=== PATIENT | female | born 1980 | race Caucasian/White ===

== ENCOUNTER 2017-03-01 18:44 | Emergency (ER) | payer BC, OTHER ==
[~2017-03-01] VITALS: Ht 160 cm; Wt 59.5 kg
[2017-03-01 18:48] VITALS: Ht 160 cm; Wt 59.5 kg
[2017-03-01 19:20] LABS: URINE BLOOD (Dip) POC 2+ (NEGATIVE)
[2017-03-01 19:35] LABS: ADD UMIC YES; UR ASCORBIC ACID NEGATIVE (NEGATIVE); UR BILIRUBIN (Dip) NEGATIVE (NEGATIVE); UR BLOOD (Dip) 1+ mg/dL (NEGATIVE); UR CLARITY CLEAR (CLEAR); UR COLOR YELLOW (YELLOW); UR GLUCOSE (Dip) NEGATIVE (NEGATIVE); UR KETONES (Dip) NEGATIVE (NEGATIVE); UR LEUKOCYTE ESTERASE (Dip) NEGATIVE Leu/ul (NEGATIVE); UR NITRITE (Dip) NEGATIVE (NEGATIVE); UR RBC 1 /HPF (0-5); UR SPECIFIC GRAVITY (Dip) 1.012 (1.003-1.030); UR SQUAMOUS EPITHELIAL CELL FEW /HPF (FEW); UR TOTAL PROTEIN (Dip) NEGATIVE (NEGATIVE); UR UROBILINOGEN (Dip) NEGATIVE (NEGATIVE)
[2017-03-01 19:48] LABS: BASOPHILS % 0.4 % (0.0-2.0); EOSINOPHILS # 0.1 10^3/ul (0.0-0.5); EOSINOPHILS % 0.7 % (0.0-7.0); HEMATOCRIT 37.4 % (37.0-47.0); HEMOGLOBIN 12.2 g/dl (12.0-16.0); LYMPHOCYTES # 3.1 10^3/ul (0.8-2.9); LYMPHOCYTES % 27.7 % (15.0-51.0); MEAN CORPUSCULAR HEMOGLOBIN 28.4 pg (29.0-33.0); MEAN CORPUSCULAR HGB CONC 32.6 g/dl (32.0-37.0); MEAN CORPUSCULAR VOLUME 87.2 fl (82.0-101.0); MEAN PLATELET VOLUME 12.3 fl (7.4-10.4); MONOCYTE # 0.6 10^3/ul (0.3-0.9); MONOCYTES % 5.3 % (0.0-11.0); NEUTROPHILS % 65.6 % (39.0-77.0); PLATELET COUNT 247 10^3/UL (140-415); RED BLOOD COUNT 4.29 10^6/ul (4.20-5.40); RED CELL DISTRIBUTION WIDTH 12.9 % (11.5-14.5); WHITE BLOOD COUNT 11.3 10^3/ul (4.8-10.8)
--- NOTE | 2017-03-01 20:43 | RADRPT ---
PROCEDURE: Obstetrical ultrasound greater than 14 weeks CLINICAL INDICATION: Evaluate well-being. Vaginal bleeding. No heart tones detected at clinic TECHNIQUE: Real time sonographic imaging of the gravid uterus is performed transabdominally and mu ltiple static carney scale and Doppler images are submitted for review as are measurements. The image s are reviewed on the PACS. COMPARISON: No relevant exams are available FINDINGS: The cervical os is closed with a normal cervical length of 4.03 cm. There is a single living intrauterine gestation in variable presentation. The heart beat is e stimated at 144 bpm. The measurements are as follows: BPD:2.63 cm HC:10.00 cm AC:8.48 cm FL:1.54 cm Estimated gestational age is 14 weeks 5 days. The estimated date of delivery is 08/25/2017. The estimated weight is 104 grams. Placenta is posterior and grade 0. There is no evidence of placenta previa or abruption. The amniotic fluid is qualitatively normal RPTAT:HJJR IMPRESSION: 1. Single viable intrauterine gestation estimated at 14 weeks 5 days with the estimated date of deli very 08/25/2017. 2. The heart beat is detected at 144 bpm. 3. Posterior grade 0 placenta without evidence of placenta previa or abruption. Physician Luc Date Time Electronically viewed and signed by Physician Luc on 03/01/2017 20:43 /
--- NOTE | 2017-03-01 22:57 | ERD ---
ER Documentation Chief Complaint Date/Time DATE: 03/01/17 TIME: 22:47 Chief Complaint sent by OBGYN to evaluate 14 weeks - not heard heart rate of baby HPI 36-year-old female coming in for evaluation of her . Patient was seen at her OBs office Elsie Lockhart told that there was no heartbeat for the BP. Patient was recommended to come to the emergency room to evaluate . AO. Denies bleeding. Denies cramping. Menstrual period was November 26. ROS All systems reviewed and are negative except as per history of present illness. Allergies Allergies: Coded Allergies: No Known Allergy (Unverified , 03/01/17) PMhx/Soc Medical and Surgical Hx: pt denies Medical Hx History of Surgery: Yes () Anesthesia Reaction: No Hx Alcohol Use: No Hx Substance Use: No Hx Tobacco Use: No Smoking Status: Never smoker Physical Exam Vitals Vital Signs Date Time Temp Pulse Resp B/P Pulse Ox O2 Delivery O2 Flow Rate FiO2 03/01/17 18:48 98.3 92 20 101/52 98 Physical Exam GENERAL: The patient is well-appearing, well-nourished, in no acute distress CHEST: Clear to auscultation bilaterally. There are no rales, wheezes or rhonchi. HEART: Regular rate and rhythm. No murmurs, clicks, rubs or gallops. No S3 or S4. ABDOMEN:Soft, nontender and nondistended. Good bowel sounds. No rebound or guarding. No gross peritonitis. No gross organomegaly or masses. No Soriano sign or McBurney point tenderness. BACK: No midline or flank tenderness. Result Diagram: 03/01/171939 Results 24 hrs Laboratory Tests Test 03/01/17 19:12 03/01/17 19:26 03/01/17 19:40 Urine Color YELLOW Urine Clarity CLEAR Urine pH 6.0 Urine Specific [place] 1.012 Urine Ketones NEGATIVEmg/dL Urine Nitrite NEGATIVEmg/dL Urine Bilirubin NEGATIVEmg/dL Urine Urobilinogen NEGATIVEmg/dL Urine Leukocyte Esterase NEGATIVELeu/ul Urine Microscopic RBC 1/HPF Urine Microscopic WBC 0/HPF Urine Squamous Epithelial Cells FEW/HPF Urine Hemoglobin 1+mg/dL Urine Glucose NEGATIVEmg/dL Urine Total Protein NEGATIVEmg/dl Bedside Urine pH (LAB) 6.0 Bedside Urine Protein (LAB) Negative Bedside Urine Glucose (UA) Negative Bedside Urine Ketones (LAB) Negative Bedside Urine Blood 2+ Bedside Urine Nitrite (LAB) Negative Bedside Urine Leukocyte Esterase (L Negative White Blood Count 11.310^3/ul Red Blood Count 4.2910^6/ul Hemoglobin 12.2g/dl Hematocrit 37.4% Mean Corpuscular Volume 87.2fl Mean Corpuscular Hemoglobin 28.4pg Mean Corpuscular Hemoglobin Concent 32.6g/dl Red Cell Distribution Width 12.9% Platelet Count 70785^3/UL Mean Platelet Volume 12.3fl Neutrophils % 65.6% Lymphocytes % 27.7% Monocytes % 5.3% Eosinophils % 0.7% Basophils % 0.4% Nucleated Red Blood Cells % 0.0/100WBC Neutrophils # (Manual) 710^3/ul Lymphocytes # 3.110^3/ul Monocytes # 0.610^3/ul Eosinophils # 0.110^3/ul Basophils # 0.010^3/ul Nucleated Red Blood Cells # 0.010^3/ul Beta HCG, Quantitative 66066.0mIU/ml Procedures/MDM DIAGNOSTIC IMAGING REPORT Patient: LANIE JOY : 1980 Age: 36 Sex: F MR #: [id number] DOS: 03/01/171908 Ordering MD: YONATAN GILLIS PA-C Location: [facility] Room/Bed: PROCEDURE: Obstetrical ultrasound greater than 14 weeks CLINICAL INDICATION: Evaluate well-being. Vaginal bleeding. No heart tones detected at clinic TECHNIQUE: Real time sonographic imaging of the gravid uterus is performed transabdominally and multiple static carney scale and Doppler images are submitted for review as are measurements. The images are reviewed on the PACS. COMPARISON: No relevant exams are available FINDINGS: The cervical os is closed with a normal cervical length of 4.03 cm. There is a single living intrauterine gestation in variable presentation. The heart beat is estimated at 144 bpm. The measurements are as follows: BPD: 2.63 cm HC: 10.00 cm AC: 8.48 cm FL: 1.54 cm Estimated gestational age is 14 weeks 5 days. The estimated date of delivery is 08/25/2017. The estimated weight is 104 grams. Placenta is posterior and grade 0. There is no evidence of placenta previa or abruption. The amniotic fluid is qualitatively normal RPTAT:HJJR IMPRESSION: 1. Single viable intrauterine gestation estimated at 14 weeks 5 days with the estimated date of delivery 08/25/2017. 2. The heart beat is detected at 144 bpm. 3. Posterior grade 0 placenta without evidence of placenta previa or abruption. MDM: Viable fetus seen on ultrasound with a heart rate of 144 bpm. Patient is not having bleeding or pelvic pain. I have low suspicion for pelvic emergency at this time. Patient is not having bleeding and Rh is positive, no indication for RhoGam. Patient's urine does not appear to be infected. Patient's vital signs and exam are not concerning. Patient is discharged with results and recommended to follow-up with OB. I will suspicion for ectopic as fetus is seen and within the uterus. Departure Diagnosis: Primary Impression: Condition: Stable Patient Instructions: , Established, Normal Symptoms Additional Instructions: FOLLOW UP WITH YOUR PRIMARY CARE PHYSICIAN TOMORROW.Return to this facility if you are not improving as expected. NEHA GILLIS PA-C Mar 01, 2017 22:57
== END 2017-03-01 21:12 | disposition home or self-care (01) ==
LOC: FTE 18:44
DX: O20.9 Hemorrhage in early pregnancy, unspecified (principal); R10.2 Pelvic and perineal pain; Z3A.14 14 weeks gestation of pregnancy
CPT/HCPCS: 36415; 76801; 81001; 84702; 85025; 86900; 86901; Z7502; 81003